=== PATIENT | male | born 2000 | race Hispanic/Latino ===

== ENCOUNTER 2022-11-02 03:03 | Emergency (ER) | payer SELFPAY ==
[2022-11-02] MEDS ORDERED: Ondansetron PF 4 MG/2 ML Vial ONE (03:31)
== END 2022-11-02 05:02 | disposition home or self-care (01) ==
LOC: ERS 03:03
DX: R41.82 Altered mental status, unspecified (principal); F10.129 Alcohol abuse with intoxication, unspecified; F17.290 Nicotine dependence, other tobacco product, uncomplicated; Y90.9 Presence of alcohol in blood, level not specified
CPT/HCPCS: 94760; 96361; 96374; J2405